=== PATIENT | female | born 1990 | race Caucasian/White ===

== ENCOUNTER 2016-05-14 14:43 | Emergency (ER) ==
[2016-05-14 14:55] VITALS: BP 121/70
--- NOTE | 2016-05-14 15:07 | PROVIDER DOCUMENTATION ---
HPI-EENT General - General Chief Complaint: Cold Symptoms Stated Complaint: COUGH/CHEST CONGESTION Time Seen by Provider: 05/14/16 15:05 Source: patient Allergies/Adverse Reactions: Patient Allergies Allergy/AdvReac Type Severity Reaction Status Date / Time No Known Allergies Allergy Verified 05/14/16 15:09 Home Medications: Home Medication List Medication Instructions Recorded Confirmed Last Taken Type Fluticasone 50 Mcg Nasal Clubb 1 spray BECKY DAILY #1 bottle 05/14/16 Unknown Rx [Flonase] Guaifenesin/D-Methorphan Hb/PE 1 each PO Q6-8H PRN PRN #14 tablet 05/14/16 Unknown Rx [Deconex Dmx Tablet] Montelukast Chew [Singulair] 5 mg PO DAILY #30 tablet 05/14/16 Unknown Rx - History of Present Illness-EENT General Nature of Presenting Problem: This pt presents to ED with congestion, non-productive cough and right ear fullness that has been going on for 3-4 days. Denies fever, chills, bodyaches, N /V/D. Reports that she has these same symptoms every time around this time of the year. EENT Location: reports: nose, facial Quality of Pain: reports: aching Severity: reports: mild Onset/Duration: reports: 4 days ago Timing: reports: still present Prearrival Treatment: Initiated no prearrival treatment Associated Symptoms: reports: nasal congestion/drainage, sinus infection Similar Symptoms Previously?: Yes (every spring) Recently seen or treated by another doctor?: No Review of Systems - Adult - REVIEW OF SYSTEMS - ADULT Constitutional: reports: fatique. denies: chills, fever Eyes: reports: no symptoms reported. denies: discharge, dry eyes Ears, Nose, Mouth & Throat: reports: sinus problem, nose pain. denies: ear discharge, ear pain Cardiovascular: reports: no symptoms reported. denies: chest pain, edema Respiratory: reports: cough. denies: chronic cough, pleurisy, shortness of breath Gastrointestinal: reports: no symptoms reported. denies: abdominal pain, hematemesis Genitourinary: reports: no symptoms reported. denies: dysuria, discharge Musculoskeletal: reports: no symptoms reported. denies: bone pain, back pain Integumentary: reports: no symptoms reported. denies: hives, hair loss Neurological: reports: no symptoms reported. denies: ataxia, dizziness/vertigo Psychiatric: reports: no symptoms reported. denies: anxiety, anti-depressant use Endocrine: reports: no symptoms reported Hematologic/Lymphatic: reports: no symptoms reported Allergic/Immunologic: reports: no symptoms reported All Other Systems: Reviewed and Negative Past History - Adult - PAST MEDICAL HISTORY-ADULT Review of Records: reports: Old Records Reviewed, Nursing Assessment Review, Medications Reviewed, Social history reviewed & non-contributory. Major Childhood Illnesses: reports: denies history Cardiovascular: reports: denies history Respiratory: reports: COPD Gastrointestinal: reports: denies history Obstetrical/Gynecological: reports: denies history Genitourinary: reports: denies history Musculoskeletal: reports: denies history Neurological: reports: denies history Endocrine/Immune: reports: denies history Other Conditions: reports: denies history - PRIOR SURGERIES/PROCEDURES Surgical/Procedure History: reports: other (lobectomy) - IMMUNIZATION STATUS Childhood Immunizations: See Nurse Assessment Flu Vaccine: See Nurse Assessment Physical Exam- EENT - Physical Exam EENT Initial Vital Signs Reviewed: Yes General Appearance: appears well, alert, no apparent distress Eye Exam: bilateral eye: normal inspection, PERRL, EOMI Ear Exam: bilateral ear: auricle normal, canal normal, TM normal Nasal Exam: sinus tenderness Throat Exam: normal mouth inspection, pharynx normal. negative: pharynx tenderness, tonsillar exudate, tonsillar swelling Neck: non-tender, full range of motion, supple, normal inspection. negative: limited range of motion, lymphadenopathy, meningismus Respiratory: chest non-tender, lungs clear, normal breath sounds, no pleuratic chest pain, no respiratory distress, no accessory muscle use Cardiovascular: normal peripheral pulses, regular rate, rhythm Abdominal Exam: normal bowel sounds, non tender, soft Back Exam: normal inspection Extremity: normal range of motion, non-tender, normal gait, normal inspection Integumentary: normal color, normal turgor, warm/dry Neurologic: grossly normal, no motor/sensory deficits Psych/Mental Status: normal mood/affect, normal thought content, normal thought process, oriented x 3 Progress - PLAN OF CARE/RESULTS Progress/Plan/Lab Results: Vital Signs Temp Pulse Resp BP Pulse Ox 05/14/16 14:52 98.4 F 108 H 20 121/70 100 No Known Allergies Allergy (Verified 05/14/16 15:09) No Home Medications 03/10/17 Departure - Departure Time of Disposition Order: 15:19 DIAGNOSIS: Allergic sinusitis Disposition: HOME 01 Certified Medical Emergency: Urgent Condition: Good Additional Instructions: Take medication as prescribed. Follow up with your primary care provider. ED Follow Up Instructions: You have been treated by a care provider in the Emergency Department. These instructions are being provided to you so you can have an understanding of how to care for yourself upon discharge. Upon discharge from the Emergency Department, you are responsible for making arrangements for follow-up care by a physician of your choice. Take all prescribed medications as directed. Return to the Emergency Department immediately for any new or worsening symptoms. You may call the Physician Referral phone number at [phone] to obtain a list of Physicians who are taking new patients. Prescriptions: Guaifenesin/D-Methorphan Hb/PE [Deconex Dmx Tablet] 1 each PO Q6-8H PRN PRN #14 tablet PRN Reason: Cough and congestion Fluticasone 50 Mcg Nasal Clubb [Flonase] 1 spray BECKY DAILY #1 bottle Montelukast Chew [Singulair] 5 mg PO DAILY #30 tablet Attestation - Physician/ MIRA Attestation Patient care was provided by Advanced Practice Provider:: Yes Advanced Practice Provider:: Otto Kee Advanced Practice Provider documentation review:: The Mid-level provider documentation, treatment plan and medical decision making was reviewed by the physician who agrees with all treatment and medical decision making by the MLP.
== END 2016-05-14 15:31 | disposition home or self-care (01) ==
LOC: ED 14:43
DX: J30.9 Allergic rhinitis, unspecified (principal); R09.81 Nasal congestion; R05 Cough; R53.83 Other fatigue; J44.9 Chronic obstructive pulmonary disease, unspecified
CPT/HCPCS: 99282